=== PATIENT | male | born 1970 | race Caucasian/White ===

== ENCOUNTER 2017-10-07 22:17 | Emergency (ER) | payer SELFPAY, MEDICAID ==
[2017-10-08] MEDS: IPRATROPIUM (NEB) 0.5 MG/2.5 ML AMP NEB (01:20)
[2017-10-08] MEDS: ALBUTEROL 0.083% (NEB) 2.5 MG/3 ML AMP NEB (01:20)
[2017-10-08] MEDS: ACETAMINOPHEN 500 MG TAB PO (01:51)
== END 2017-10-08 03:09 | disposition home or self-care (01) ==
LOC: FTE 22:17
DX: J45.901 Unspecified asthma with (acute) exacerbation (principal); J20.9 Acute bronchitis, unspecified; I10 Essential (primary) hypertension; E11.9 Type 2 diabetes mellitus without complications; F17.210 Nicotine dependence, cigarettes, uncomplicated; Z79.84 Long term (current) use of oral hypoglycemic drugs
CPT/HCPCS: 71045; 94664; 99284-25

== ENCOUNTER 2019-04-25 23:53 | Inpatient (IN) | payer MEDICAID ==
[2019-04-26 00:52] LABS: ADD MAN DIFF? NO
[2019-04-26 00:56] LABS: BASOPHILS % 0.8 % (0.0-2.0); EOSINOPHILS % 0.8 % (0.0-7.0); HEMATOCRIT 46.8 % (42.0-52.0); HEMOGLOBIN 14.7 g/dl (14.0-18.0); LYMPHOCYTES # 1.8 10^3/ul (0.8-2.9); LYMPHOCYTES % 34.8 % (15.0-51.0); MEAN CORPUSCULAR HEMOGLOBIN 27.8 pg (29.0-33.0); MEAN CORPUSCULAR HGB CONC 31.4 g/dl (32.0-37.0); MEAN CORPUSCULAR VOLUME 88.6 fl (82.0-101.0); MEAN PLATELET VOLUME 10.8 fl (7.4-10.4); MONOCYTE # 0.7 10^3/ul (0.3-0.9); NEUTROPHIL # 2.6 10^3/ul (1.6-7.5); NEUTROPHILS % 49.4 % (39.0-77.0); PLATELET COUNT 174 10^3/UL (140-415); RED BLOOD COUNT 5.28 10^6/ul (4.70-6.10); RED CELL DISTRIBUTION WIDTH 14.9 % (11.5-14.5)
[2019-04-26 00:56] LABS: WHITE BLOOD COUNT 5.2 10^3/ul (4.8-10.8)
[2019-04-26 01:15] LABS: ALANINE AMINOTRANSFERASE 43 IU/L (13-69); ALBUMIN 3.5 g/dl (3.3-4.9); ALBUMIN/GLOBULIN RATIO 0.87; ALKALINE PHOSPHATASE 149 IU/L (42-121); ANION GAP 7 (5-13); ASPARTATE AMINO TRANSFERASE 37 IU/L (15-46); BILIRUBIN,INDIRECT 0.4 mg/dl (0-1.1); BILIRUBIN,TOTAL 0.4 mg/dl (0.2-1.3); BLOOD UREA NITROGEN 17 mg/dl (7-20); CALCIUM 8.8 mg/dl (8.4-10.2); CARBON DIOXIDE 25 mmol/L (21-31); CHLORIDE 108 mmol/L (97-110); CREATININE 0.75 mg/dl (0.61-1.24); Estimated GFR > 60 mL/min (>60); GLUCOSE 104 mg/dl (70-220); LIPASE 699 U/L (23-300); POTASSIUM 3.6 mmol/L (3.5-5.1); SODIUM 140 mmol/L (135-144); TOTAL PROTEIN 7.5 g/dl (6.1-8.1)
[2019-04-26] MEDS: LORAZEPAM 2 MG INJ IV (01:15)
[2019-04-26 01:26] LABS: B-TYPE NATRIURETIC PEPTIDE 2100 PG/ML (0-125); TROPONIN-I 0.014 ng/ml (0.000-0.120)
[2019-04-26 02:13] LABS: URINE BLOOD (Dip) POC Trace-intact (NEGATIVE); URINE GLUCOSE (Dip) POC Negative (NEGATIVE); URINE KETONES (Dip) POC Trace (NEGATIVE); URINE LEUKOCYTE EST (Dip) POC Negative (NEGATIVE); URINE NITRITE (Dip) POC Negative (NEGATIVE); URINE TOTAL PROTEIN POC Negative (NEGATIVE)
[2019-04-26 02:13] LABS: URINE PH (Dip) POC 5.5 (5.0-8.5)
[2019-04-26 03:18] LABS: AMMONIA 33 umol/l (9-30)
[2019-04-26 03:39] LABS: ETHANOL < 10.0 mg/dl (0-0)
[2019-04-26] MEDS: FUROSEMIDE 40 MG INJ IV ×2 (04:13→07:25)
[2019-04-26 04:38] LABS: AMPHETAMINE/METHAMPHETAMINE NEGATIVE (NEGATIVE); BARBITURATES NEGATIVE (NEGATIVE); BENZODIAZEPINES POSITIVE (NEGATIVE); CANNABINOIDS POSITIVE (NEGATIVE); COCAINE NEGATIVE (NEGATIVE); OPIATES POSITIVE (NEGATIVE)
[2019-04-26] MEDS ORDERED: NACL 0.9% 3 ML SYG IV (05:00)
[2019-04-26] MEDS ORDERED: BISACODYL (EC) 5 MG TAB PO (05:00)
[2019-04-26] MEDS ORDERED: DOCUSATE SODIUM 100 MG CAP PO (05:00)
[2019-04-26] MEDS ORDERED: ONDANSETRON 4 MG INJ IV (05:00)
[2019-04-26] MEDS ORDERED: morphine 2 MG INJ IV (05:00)
[2019-04-26] MEDS ORDERED: ACETAMINOPHEN 325 MG TAB PO (05:00)
[2019-04-26] MEDS: SOD CHLORIDE 0.9% 100 ML (06:54)
[2019-04-26] MEDS: IOHEXOL 300MG/ML 150 ML BTL (06:54)
[2019-04-26] MEDS: LISINOPRIL 20 MG TAB PO (07:25)
[2019-04-26] MEDS ORDERED: NON-FORMULARY/PATIENT OWN MED (Salmeterol Xinaf/Fluticasone* (Advair*) 1 INH) INHALATION (09:00)
[2019-04-26] MEDS ORDERED: GLUCOSE GEL 15 GRAM TUBE PO ×2 (09:00)
[2019-04-26] MEDS ORDERED: GLUCAGON 1 MG INJ IM (09:00)
[2019-04-26] MEDS ORDERED: NON-FORMULARY/PATIENT OWN MED (Mometasone-Formoterol (Dulera) 2 PUFFS) INHALATION (09:00)
[2019-04-26] MEDS ORDERED: GLUCOSE GEL 15 GRAM TUBE BUCCAL (09:00)
[2019-04-26] MEDS ORDERED: DEXTROSE 50% 50 ML SYRINGE IV ×2 (09:00)
[2019-04-26] MEDS: METOPROLOL (XL) 50 MG TAB PO (09:19)
[2019-04-26] MEDS: SPIRONOLACTONE 25 MG TAB PO (09:19)
[2019-04-26 09:40] LABS: HEMOGLOBIN A1C 6.3 % (0-5.9)
[2019-04-26] MEDS ORDERED: INSULIN ASPART [NOVOLOG] 3 ML PEN SC (12:00)
[2019-04-26] MEDS ORDERED: MONTELUKAST 10 MG TAB PO (21:00)
[2019-04-27] MEDS ORDERED: ACCU-CHEK XX (02:00)
== END 2019-04-26 10:32 | disposition left against medical advice (07) | DRG 291 ==
LOC: E/R 23:53 → 6WM 04-26 04:13
DX: I13.0 Hypertensive heart and chronic kidney disease with heart failure and stage 1 through stage 4 chronic kidney disease, or unspecified chronic kidney disease (principal); I50.23 Acute on chronic systolic (congestive) heart failure; G92 Toxic encephalopathy; I31.3 Pericardial effusion (noninflammatory); E72.20 Disorder of urea cycle metabolism, unspecified; E11.22 Type 2 diabetes mellitus with diabetic chronic kidney disease; I42.0 Dilated cardiomyopathy; E11.9 Type 2 diabetes mellitus without complications; F32.9 Major depressive disorder, single episode, unspecified; J44.9 Chronic obstructive pulmonary disease, unspecified; J45.909 Unspecified asthma, uncomplicated; I25.10 Atherosclerotic heart disease of native coronary artery without angina pectoris; K21.9 Gastro-esophageal reflux disease without esophagitis; N18.9 Chronic kidney disease, unspecified; B18.2 Chronic viral hepatitis C; F41.9 Anxiety disorder, unspecified; F17.200 Nicotine dependence, unspecified, uncomplicated; F15.10 Other stimulant abuse, uncomplicated; F12.90 Cannabis use, unspecified, uncomplicated; Z79.4 Long term (current) use of insulin; Z79.82 Long term (current) use of aspirin; Z53.21 Procedure and treatment not carried out due to patient leaving prior to being seen by health care provider
CPT/HCPCS: 36415; 70450; 71045; 74176; 74177; 80053; 80307; 81003; 82140; 82962; 83036; 83690; 83880; 84484; 85025; 87086; 93005; 96374; 99285-25